=== PATIENT | female | born 1980 | race Caucasian/White ===

== ENCOUNTER 2017-11-11 20:51 | Emergency (ER) | payer BC ==
[~2017-11-11] VITALS: Ht 154.9 cm; Wt 76.1 kg
[~2017-11-11 20:51] MED LIST: ALPR0.5T PO; CEFU250T PO; CETI10TA22 PO; CYCL-331 PO; Ibuprofen PO; LEVO500T59 PO; NAPR500T4 PO; TRAM50TA PO
--- NOTE | 2017-11-11 21:52 | PHYS DOC ---
General Chief Complaint: ALLERGIC REACTION Stated Complaint: ALLERGIC REACTION,FACE Time Seen by MD: 21:49 Source: patient Exam Limitations: no limitations Problems: History of Present Illness Initial Comments Patient is a 37-year-old female who comes complaining of possible allergic reaction. Patient states that she was seen by her PCP Dr. Sanford's office earlier today and underwent influenza testing. She states that she does not know what the results were but she was discharged home with prescriptions for steroid taper, Z-Samir, and Tamiflu. Patient has taken steroids and Zithromax in the past without any issues, she states that after taking the second dose of Tamiflu today she developed an itchy rash over her face and chest. She denies any difficulty breathing and cough hoarseness or feeling of lump in throat. Timing/Duration: 1-3 hours Severity: moderate Modifying Factors: improves with cold therapy, worse with medication Associated Symptoms: rash Allergies: Coded Allergies: Sulfa (Sulfonamide Antibiotics) (Verified Allergy, Intermediate, 11/11/17) amoxicillin (Verified Allergy, Intermediate, Rash, 11/23/14) shellfish derived (Verified Allergy, Intermediate, 12/02/15) *tolerated contrast in the past* Past Medical History Medical History: no pertinent history, high cholesterol Surgical History: cholecystectomy, tonsillectomy, other Social History Smoker: non-smoker Alcohol: none Drugs: none Review of Systems Constitutional: see HPI EENTM: denies throat pain, denies throat swelling, denies mouth swelling Respiratory: denies cough, denies shortness of breath, denies wheezing Cardiovascular: denies chest pain, denies palpitations, denies syncope Gastrointestinal: denies abdominal pain, denies nausea, denies vomiting Skin: see HPI Immunological/Allergic: see HPI Physical Exam General Appearance: WD/WN, no apparent distress Ear, Nose, Throat: hearing grossly normal, normal ENT inspection, normal pharynx, other (no soft tissue swelling airway patent) Neck: non-tender, supple Respiratory: normal breath sounds, no respiratory distress Extremities: non-tender, normal inspection Neurologic/Psychiatric: alert, oriented x 3 Skin: warm/dry (urticarial rash of face consistent with allergy) Orders, Labs, Meds I discussed the departure instructions [id number] and provided them in written form below. Patient received prednisone Benadryl and Pepcid in the emergency department and was discharged before evaluating medication efficacy per her request. I discussed signs and symptoms to monitor as well as indications for urgent return to the department. Her questions were answered to her satisfaction and she expressed agreement and understanding with the treatment plan. Departure Time of Disposition: 21:50 Disposition: HOME, SELF-CARE Diagnosis: Tamiflu allergy, flulike symptoms Condition: STABLE Patient Instructions: Drug Allergy, [id number] Additional Instructions: Please review the patient education materials given by ED staff. Remain in a cool temperature environment and avoid strenuous activity for optimal symptom control. [id number] Pepcid and Benadryl while taking prednisone. Discontinue the steroid taper pack and Tamiflu. Prescription: Prednisone 20 mg twice daily for 5 days Contact her doctor's office tomorrow to check up on influenza test results as well as to advise of hipolito's emergency department visit. Return to ED with new or changing symptoms. JOJO BRAN DO Nov 11, 2017 21:52
[2017-11-11] MEDS ORDERED: PRED20TA PO (21:53)
[2017-11-11] MEDS ORDERED: diphenhydrAMINE HCL 25 MG CAPSULE PO ONE (22:15)
[2017-11-11] MEDS ORDERED: FAMOTIDINE 20 MG TABLET PO ONE (22:15)
[2017-11-11] MEDS ORDERED: predniSONE 20 MG TABLET PO ONE (22:15)
[2017-11-12 01:58] VITALS: BP 129/89
[2017-11-15] MEDS ORDERED: CEFU250S PO (14:42)
== END 2017-11-12 01:58 | disposition home or self-care (01) ==
LOC: ER 20:51
DX: T37.5X5A Adverse effect of antiviral drugs, initial encounter (principal); R05 Cough; J39.2 Other diseases of pharynx; E78.00 Pure hypercholesterolemia, unspecified; Z88.2 Allergy status to sulfonamides; Z91.013 Allergy to seafood; Y92.89 Other specified places as the place of occurrence of the external cause
CPT/HCPCS: 99284; J7512; Q0163

== ENCOUNTER 2017-11-14 11:39 | Observation (INO) | payer BC ==
[~2017-11-14] VITALS: Ht 154.9 cm; Wt 76.7 kg
[~2017-11-14 11:39] MED LIST changes: +NAPR-514 PO; -NAPR500T4 PO; +PRED20TA PO
[2017-11-14 12:14] VITALS: BP 130/92
[2017-11-14] MEDS ORDERED: ACETAMINOPHEN 500 MG TABLET PO PRN ×2 (12:45→13:00)
[2017-11-14] MEDS ORDERED: ONDANSETRON PF 4 MG/2 ML VIAL. IV PRN (12:45)
[2017-11-14 12:59] LABS: ALBUMIN 3.7 g/dL (3.4-5.0); ALBUMIN/GLOBULIN RATIO 0.8 (1.0-1.7); CREATININE 0.6 mg/dL (0.6-1.0); GFR 113.8; POTASSIUM 3.2 mmol/L (3.5-5.1); TOTAL BILIRUBIN 0.3 mg/dL (0.2-1.0); TOTAL PROTEIN 8.1 g/dL (6.4-8.2)
[2017-11-14] MEDS ORDERED: IV NORMAL SALINE 1,000ML 1,000 ML IV SCH (13:00)
[2017-11-14] MEDS ORDERED: ONDANSETRON 4MG ODT 4TABLET STARTPACK. PO ONE (13:00)
[2017-11-14 13:05] LABS: BASO % 0 % (0-3); EOS % 0 % (0-3); HEMATOCRIT 39.4 % (36.0-47.0); HEMOGLOBIN 13.4 g/dL (12.0-15.5); LYMPH # 2.9 x10^3/uL (1.0-4.8); LYMPH % 37 % (24-48); MEAN CORPUSCULAR HEMOGLOBIN 28 pg (25-35); MEAN CORPUSCULAR HGB CONC 34 g/dL (31-37); MEAN CORPUSCULAR VOLUME 82 fL (79-100); MONO # 0.7 x10^3/uL (0.0-1.1); MONO % 8 % (0-9); NEUT # 4.3 x10^3uL (1.8-7.7); NEUT % 54 % (31-73); PLATELET COUNT 252 x10^3/uL (140-400); RED BLOOD COUNT 4.83 x10^6/uL (3.50-5.40); RED CELL DISTRIBUTION WIDTH 13.8 % (11.5-14.5); WHITE BLOOD COUNT 7.9 x10^3/uL (4.0-11.0)
[2017-11-14 13:48] LABS: INFLUENZA A PATIENT NEGATIVE (NEGATIVE); INFLUENZA B PATIENT NEGATIVE (NEGATIVE)
[2017-11-14] MEDS: cefTRIAXone IV Push 1 GM VIAL. IVP SCH (14:41)
[2017-11-14] MEDS: POTASSIUM CL 20MEQ IN 0.9%NACL 1,000 ML IV SCH ×2 (14:42→23:33)
[2017-11-14 15:06] LABS: BACTERIA,URINE MOD /HPF (0-FEW); BILIRUBIN,URINE NEG (NEG); CLARITY,URINE HAZY; COLOR,URINE AMBER; GLUCOSE,URINE NEG (NEG); NITRITE,URINE NEG (NEG); SQUAMOUS EPITHELIAL CELL,UR MANY /LPF; UROBILINOGEN,URINE 1 mg/dL (0.2 mg/dL)
[2017-11-14 15:44] VITALS: BP 125/86
--- NOTE | 2017-11-14 16:19 | RAD ---
2 views of the Chest 11/14/2017 2:14 PM Indication: cough/congestion Comparison: Chest radiograph May 16, 2015 Findings: There is no focal consolidation or infiltrate identified. There is no effusion or pneumothorax. The cardiomediastinal silhouette and pulmonary vasculature are within normal limits. No osseous abnormality is identified. Impression: No evidence of acute cardiopulmonary process.
--- NOTE | 2017-11-14 17:04 | RAD ---
Abdominal ultrasound, 11/14/2017: History: Elevated liver enzymes The gallbladder is surgically absent. The hepatic echogenicity appears to be diffusely increased. This is most commonly due to fatty change. There is no evidence of a hepatic mass or bile duct dilatation. The visualized portions of the pancreas and both kidneys are unremarkable. The spleen measures 13.2 cm in length which is at the upper limits of normal. The abdominal aorta and inferior vena cava are unremarkable. No free fluid is evident in the abdomen. IMPRESSION: 1. Status post cholecystectomy. 2. Increased hepatic echogenicity suggesting hepatic steatosis. 3. No acute abdominal abnormality is detected.
[2017-11-14] MEDS: IPRATRPIUM/ALBUTEROL 0.5/2.5MG 3 ML NEBU. NEB SCH ×2 (17:57→21:39)
[2017-11-14 19:36] VITALS: BP 115/79
[2017-11-14 23:08] VITALS: BP 115/73
[2017-11-15] MEDS: POTASSIUM CL 20MEQ IN 0.9%NACL 1,000 ML IV SCH ×2 (05:13→13:24)
[2017-11-15 05:34] VITALS: BP 120/81
[2017-11-15] MEDS: IPRATRPIUM/ALBUTEROL 0.5/2.5MG 3 ML NEBU. NEB SCH ×2 (05:40→09:59)
[2017-11-15 06:48] LABS: BASO % 1 % (0-3); EOS # 0.1 x10^3/uL (0.0-0.7); EOS % 1 % (0-3); HEMATOCRIT 32.7 % (36.0-47.0); HEMOGLOBIN 11.1 g/dL (12.0-15.5); LYMPH # 2.4 x10^3/uL (1.0-4.8); LYMPH % 49 % (24-48); MEAN CORPUSCULAR HEMOGLOBIN 28 pg (25-35); MEAN CORPUSCULAR HGB CONC 34 g/dL (31-37); MEAN CORPUSCULAR VOLUME 83 fL (79-100); MONO # 0.4 x10^3/uL (0.0-1.1); MONO % 9 % (0-9); NEUT % 41 % (31-73); PLATELET COUNT 168 x10^3/uL (140-400); RED BLOOD COUNT 3.95 x10^6/uL (3.50-5.40); RED CELL DISTRIBUTION WIDTH 13.9 % (11.5-14.5); WHITE BLOOD COUNT 4.9 x10^3/uL (4.0-11.0)
[2017-11-15 06:52] LABS: CALCIUM 8.3 mg/dL (8.5-10.1); CREATININE 0.7 mg/dL (0.6-1.0); GFR 95.2; POTASSIUM 3.9 mmol/L (3.5-5.1)
[2017-11-15 08:08] LABS: HCV ANTIBODY <0.1 s/co ratio (0.0-0.9); HEP A IGM ABDY Negative (Negative)
[2017-11-15] MEDS ORDERED: LACTOBACILLUS RHAMNOSUS GG 1 CAPSULE. PO SCH (09:00)
[2017-11-15 10:34] VITALS: BP 124/85
[2017-11-15 11:09] LABS: ALBUMIN 3.1 g/dL (3.4-5.0); DIRECT BILIRUBIN 0.1 mg/dL (0.0-0.2); TOTAL BILIRUBIN 0.3 mg/dL (0.2-1.0); TOTAL PROTEIN 6.6 g/dL (6.4-8.2)
[2017-11-15] MEDS: cefTRIAXone IV Push 1 GM VIAL. IVP SCH (13:36)
[2017-11-15] MEDS ORDERED: CEFU250S PO (14:42)
[2017-11-18 18:08] LABS: ANA INTERP Negative (.)
== END 2017-11-15 15:20 | disposition home or self-care (01) ==
LOC: INTOOBSV 11:58 → 1 SOUTH 11:58
PROVIDERS: ADMIT Family Medicine; ATTEND Family Medicine
DX: J20.8 Acute bronchitis due to other specified organisms (principal); E86.0 Dehydration; B27.89 Other infectious mononucleosis with other complication; R94.5 Abnormal results of liver function studies; R11.0 Nausea; Z82.49 Family history of ischemic heart disease and other diseases of the circulatory system
CPT/HCPCS: 36415; 71046; 76700; 80048; 80053; 80074; 80076; 81001; 83605; 85025; 85379; 85651; 86038; 86060; 86140; 86644; 86645; 86663; 86664; 86738; 87040; 87086; 87804; 94640; 96361; 96374; 96376; G0378; G0379; J0696; J7620

== ENCOUNTER → 2018-08-14 | Outpatient (CLI) | payer BC ==
[~2018-08-14] MED LIST changes: +CEFU250S PO; +IOHEXOL 300 MG/ML 75 ML VIAL. IV ONE
--- NOTE | 2018-08-14 18:18 | RAD ---
CT SOFT TISSUE NECK W/CONTRAST Indication: Left-sided lump off-and-on for a couple of weeks Technique: Postcontrast CT imaging was performed of the neck, multiplanar reconstruction images submitted. One or more of the following individualized dose reduction techniques were utilized for this examination: 1. Automated exposure control 2. Adjustment of the mA and/or kV according to patient size 3. Use of iterative reconstruction technique. Comparison: None Findings: Marked was placed at site of concern which is located at the left posterior neck at the C4 level. Deep to the marker, there is a likely node about 0.6 cm short axis dimension by 0.9 cm AP by 0.6 cm CC. There are some other scattered nodes bilaterally not considered significantly enlarged based on short axis dimension. Largest right level 2 node measures about 0.9 cm short axis dimension. There is no abnormality of the visualized thyroid gland. There is no abnormality of the limited visualized lung apices. There is preservation of the parapharyngeal fat planes. Right submandibular gland is somewhat enlarged compared with the left without discrete nodularity. Parotid glands are symmetric in appearance other than probable small superficial node on the right about 0.3 cm short axis dimension. The mastoid air cells and visualized paranasal sinuses are overall aerated. No abnormal fluid collection is identified of the neck. IMPRESSION: 1. There is a probable node deep to the left posterior marker at site of palpable concern, not considered significantly enlarged. There are some other scattered nonspecific nodes of the bilateral neck although also not considered significantly enlarged based on short axis dimensions. Clinical follow-up is advised. Electronically signed by: Junior Zhu MD (08/14/2018 6:15 PM) [id number]
== END | disposition home or self-care (01) ==
LOC: CT 12:24
PROVIDERS: ATTEND Nurse Practitioner Family
DX: R13.12 Dysphagia, oropharyngeal phase (principal); R59.0 Localized enlarged lymph nodes
CPT/HCPCS: 70491; Q9967

== ENCOUNTER → 2019-11-30 | Outpatient (CLI) | payer BC ==
[~2019-11-30] MED LIST changes: -CETI10TA22 PO; +CETI10TA24 PO; +CONTRAST GIVEN MC PRN
--- NOTE | 2019-11-30 10:01 | RAD ---
Examination: CT SOFT TISSUE NECK W/CONTRAST History: Nodules of the neck bilaterally and posteriorly Comparison/Correlation: 08/14/2018 CT Neck with contrast Findings: Axial images of the neck were obtained following IV contrast. Sagittal and coronal reformatted images were provided. Posterior fossa is unremarkable. Visualized paranasal sinuses are unremarkable. Parotid and submandibular glands are unremarkable. Pharynx is symmetric. True and false cords are symmetric. Thyroid gland is normal. Bony structures are unremarkable. Visualized vasculature structures are unremarkable on this nonarteriographic exam. Markers were placed at the right posterior neck region where palpable abnormalities reported. On axial image 39 at the false cord level within the posterior lateral neck, there is a 0.6 cm x 0.6 cm well-circumscribed nodule superficial to musculature. This may represent a lymph node. More superiorly on axial image 29 which is at the C2 vertebral body level inferiorly, there is a spiculated process within the subcutaneous fat measuring 0.9 cm x 1.2 cm. Superior to this level is a 0.4 cm diameter nodule on axial image 24. Central hypodensity which may represent calcifications present. At the left lower neck, marker was placed at the posterior lateral aspect which measures 1 cm x 0.9 cm on axial image 41. This is just deep to the fascia. There are additional nonenlarged lymph nodes and nodular structures which probably represent lymph nodes present bilaterally. Visualized lung apices are unremarkable. Impression: Multiple nonenlarged, benign-appearing lymph nodes are present involving the neck are mostly stable in size compared to the previous exam. At the left basilar aspect, there is a borderline size lymph node node or other nodule present. No aggressive features. It has mildly increased in size as compared to 08/14/2018. One of the palpable abnormalities correspond to the level of the nodule which probably represents a lymph node. Additional marker placed more superiorly at the right posterolateral neck corresponds to a spiculated soft tissue density within the subcutaneous fat. Correlate with trauma, intervention, inflammatory process, scarring, or other etiology for this finding which has remained stable since the previous CT exam. PQRS Compliance Statement: One or more of the following individualized dose reduction techniques were utilized for this examination: 1. Automated exposure control 2. Adjustment of the mA and/or kV according to patient size 3. Use of iterative reconstruction technique Electronically signed by: Robert Durbin MD (11/30/2019 9:59 AM) [place] [id number]
== END | disposition home or self-care (01) ==
LOC: CT 08:24
PROVIDERS: ATTEND Family Medicine
DX: M54.2 Cervicalgia (principal); R22.1 Localized swelling, mass and lump, neck
CPT/HCPCS: 70491; Q9967

== ENCOUNTER → 2020-05-10 | Outpatient (CLI) | payer BC ==
[~2020-05-10] MED LIST changes: -CONTRAST GIVEN MC PRN; -IOHEXOL 300 MG/ML 75 ML VIAL. IV ONE
[2020-05-10 13:47] LABS: FREE T4 0.97 ng/dL (0.76-1.46)
[2020-05-10 13:48] LABS: THYROID STIM HORMONE (TSH) 2.572 uIU/mL (0.358-3.740)
[2020-05-10 20:06] LABS: FSH 54.6 mIU/mL (.); LUTEINIZING HORMONE 24.9 mIU/mL (.); THYROXINE 7.9 ug/dL (4.5-12.0)
[2020-05-11 00:07] LABS: HEMOGLOBIN A1C 5.4 % (4.8-5.6)
== END ==
LOC: LAB 07:32
DX: E11.65 Type 2 diabetes mellitus with hyperglycemia (principal); E34.9 Endocrine disorder, unspecified; E23.0 Hypopituitarism; E55.9 Vitamin D deficiency, unspecified; E03.9 Hypothyroidism, unspecified; E61.1 Iron deficiency
CPT/HCPCS: 36415; 82306; 82607; 83001; 83002; 83036; 83540; 84270; 84305; 84436; 84439; 84443; 84479; 84480; 84481; 84482

== ENCOUNTER → 2020-07-01 | Outpatient (CLI) | payer BC ==
[~2020-07-01] MED LIST changes: -CETI10TA24 PO; +CETI10TA74 PO
[2020-07-02 00:07] LABS: THYROPEROXIDASE ANTIBODY 9 IU/mL (0-34)
== END | disposition home or self-care (01) ==
LOC: LAB 12:44
DX: E03.9 Hypothyroidism, unspecified (principal)
CPT/HCPCS: 36415; 84442; 86376

== ENCOUNTER → 2020-07-18 | Outpatient (CLI) | payer BC ==
--- NOTE | 2020-07-18 10:30 | RAD ---
EXAMINATION: THYROID ULTRASOUND, 07/18/2020 9:00 AM CLINICAL INDICATION: Goiter TECHNIQUE: Grayscale and color Doppler sonographic images of the thyroid are submitted for interpretation. COMPARISON: CT soft tissue neck 11/30/2019 FINDINGS: The right thyroid lobe measures 5.3 x 1.3 x 1.1 cm. The left thyroid lobe measures 3.8 x 1.2 x 1.1 cm. The isthmus is not visualized. Thyroid parenchyma is homogeneous and normal in echogenicity and echotexture. There is a tiny 3 mm anechoic cyst in the left thyroid lobe. No suspicious nodules. IMPRESSION: Normal appearance of thyroid gland. No goiter or suspicious nodules. Electronically signed by: Negin Fong MD (07/18/2020 10:26 AM) [id number]
== END | disposition home or self-care (01) ==
LOC: US 08:27
DX: E04.1 Nontoxic single thyroid nodule (principal)
CPT/HCPCS: 76536

== ENCOUNTER → 2020-08-19 | Outpatient (CLI) | payer BC ==
--- NOTE | 2020-08-19 10:12 | RAD ---
EXAM: Bilateral digital screening mammogram with tomosynthesis. HISTORY 40-year-old female presents for screening mammography. TECHNIQUE: Full-field digital craniocaudal and mediolateral oblique 2D and 3D tomosynthesis images of both breasts are obtained for evaluation. Computer aided detection was applied. COMPARISON: None. This is baseline mammogram. BREAST PARENCHYMAL DENSITY: Level A - Mostly fat. FINDINGS: There is no suspicious mass, microcalcification or region of architectural distortion. IMPRESSION: BI-RADS Category 2: Benign finding(s). RECOMMENDATION: Annual mammography resuming age 40, or earlier if deemed indicated based on clinical history, is recommended according to ACR guidelines. If your mammogram demonstrates that you have dense breast tissue, which could hide abnormalities, and if you have other risk factors for breast cancer that have been identified, you might benefit from supplemental screening tests that may be suggested by your ordering physician. Dense breast tissue, in and of itself, is a relatively common condition. This information is not provided to cause undue concern, but rather to raise your awareness and to promote discussion with your physician regarding the presence of other risk factors, in addition to dense breast tissue. A report of your mammography results will be sent to you and your physician. You should contact your physician if you have any questions or concerns regarding this report. Mammography is a sensitive method for finding small breast cancers, but it does not detect them all and is not a substitute for careful clinical examination. A negative mammogram does not negate a clinically suspicious finding and should not result in delay in biopsying a clinically suspicious abnormality. PQRS compliance statement - Patient information was entered into a reminder system with a target due date for the next mammogram. "Our facility is accredited by the [employer] Mammography Program." Electronically signed by: Savannah Castaneda MD (08/19/2020 10:09 AM) [id number]
== END ==
LOC: MAMMO 08:17
DX: Z12.31 Encounter for screening mammogram for malignant neoplasm of breast (principal)
CPT/HCPCS: 77063; 77067

== ENCOUNTER → 2020-10-18 | Outpatient (CLI) | payer BC ==
[2020-10-18 18:58] LABS: FREE T4 0.97 ng/dL (0.76-1.46); THYROID STIM HORMONE (TSH) 3.17 uIU/mL (0.358-3.740)
[2020-10-18 20:09] LABS: THYROXINE 6.9 ug/dL (4.5-12.0)
== END ==
LOC: LAB 08:08
PROVIDERS: ATTEND Registered Nurse
DX: E61.1 Iron deficiency (principal); E55.9 Vitamin D deficiency, unspecified; E03.9 Hypothyroidism, unspecified
CPT/HCPCS: 36415; 83540; 84436; 84439; 84443; 84479; 84480; 84481; 84482

== ENCOUNTER 2020-11-07 13:51 | Emergency (ER) | payer BC ==
[~2020-11-07] VITALS: Ht 152.4 cm; Wt 77.8 kg
[2020-11-07] MEDS ORDERED: diphenhydrAMINE 50 MG/ML VIAL IVP ONE (14:30)
[2020-11-07] MEDS ORDERED: IV NORMAL SALINE 1,000ML 1,000 ML IV ONE (14:30)
[2020-11-07] MEDS ORDERED: ONDANSETRON PF 4 MG/2 ML VIAL. IVP ONE (14:30)
[2020-11-07 14:47] LABS: BASO # 0.1 x10^3/uL (0.0-0.2); BASO % 1 % (0-3); EOS # 0.1 x10^3/uL (0.0-0.7); EOS % 1 % (0-3); HEMATOCRIT 38.9 % (36.0-47.0); HEMOGLOBIN 12.7 g/dL (12.0-15.5); LYMPH # 2.8 x10^3/uL (1.0-4.8); LYMPH % 31 % (24-48); MEAN CORPUSCULAR HEMOGLOBIN 27 pg (25-35); MEAN CORPUSCULAR HGB CONC 33 g/dL (31-37); MEAN CORPUSCULAR VOLUME 83 fL (79-100); MONO # 0.4 x10^3/uL (0.0-1.1); MONO % 5 % (0-9); NEUT # 5.5 x10^3uL (1.8-7.7); NEUT % 62 % (31-73); PLATELET COUNT 215 x10^3/uL (140-400); RED BLOOD COUNT 4.69 x10^6/uL (3.50-5.40); RED CELL DISTRIBUTION WIDTH 14.3 % (11.5-14.5); WHITE BLOOD COUNT 8.9 x10^3/uL (4.0-11.0)
--- NOTE | 2020-11-07 14:52 | EKG ---
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
--- NOTE | 2020-11-07 14:55 | PHYS DOC ---
Past History Past Medical History: Anxiety, Endometriosis, Migraines, Ovarian Cyst, Other Additional Past Medical Histor: FE DEFICIENCY, ADRENAL GLAND "ISSUES" Past Surgical History: Cholecystectomy, , Hysterectomy, Other Additional Past Surgical Histo: LEFT BICEP, LYMPH NODE REMOVAL ON NECK Alcohol Use: None Drug Use: None General Adult EDM: Chief Complaint: NOSEBLEED HPI: HPI: Patient is a 40-year-old female who presents with a nosebleed. Patient states that the nosebleed started at 8:00 this morning. She reports that the nosebleed has been intermittent all day. Patient is reporting nausea headache, and some lightheadedness. Patient states she has never had a nosebleed before. Patient states she was seen at Dr. Duke's office prior to coming to the emergency room. Dr. Duke wanted her to have labs drawn. Patient denies being on blood thinners. Patient has history of iron deficiency anemia. Review of Systems: Review of Systems: Constitutional: Denies fever or chills Eyes: Denies change in visual acuity HENT: Denies nasal congestion or sore throat Respiratory: Denies cough or shortness of breath Cardiovascular: Denies chest pain or edema GI: Denies abdominal pain, reports nausea : Denies dysuria Musculoskeletal: Denies back pain or joint pain Integument: Denies rash Neurologic: Reports headache, denies focal weakness or sensory changes Endocrine: Denies polyuria or polydipsia Lymphatic: Denies swollen glands Psychiatric: Denies depression or anxiety Current Medications: Current Meds: Current Medications Medications (Trade) Dose Ordered Sig/Alberto Start Time Stop Time Status Last Admin Dose Admin Diphenhydramine HCl (Benadryl) 25 mg 1X ONCE 11/07/20 14:30 11/07/20 14:39 DC 11/07/20 14:47 25 MG Ondansetron HCl (Zofran) 4 mg 1X ONCE 11/07/20 14:30 11/07/20 14:39 DC 11/07/20 14:44 4 MG Sodium Chloride 1,000 ml @ 1,000 mls/hr 1X ONCE 11/07/20 14:30 11/07/20 15:29 11/07/20 14:45 1,000 MLS/HR Allergies: Allergies: Allergies Coded Allergies Type Severity Reaction Last Updated Verified Sulfa (Sulfonamide Antibiotics) Allergy Intermediate 11/11/17 Yes amoxicillin Allergy Intermediate Rash 11/23/14 Yes oseltamivir Allergy Intermediate itchy rash 01/05/19 Yes shellfish derived Allergy Intermediate 12/02/15 Yes Physical Exam: PE: Constitutional: Well developed, well nourished, no acute distress, non-toxic appearance. [] HENT: Normocephalic, atraumatic, bilateral external ears normal, oropharynx moist, anterior bleeding from left nare Eyes: PERRLA, EOMI, conjunctiva normal, no discharge. [] Neck: Normal range of motion, no tenderness, supple, no stridor. [] Cardiovascular:Heart rate regular rhythm, no murmur [] Lungs & Thorax: Bilateral breath sounds clear to auscultation [] Abdomen: Bowel sounds normal, soft, no tenderness, no masses, no pulsatile masses. [] Skin: Warm, dry, no erythema, no rash. [] Back: No tenderness, no CVA tenderness. [] Extremities: No tenderness, no cyanosis, no clubbing, ROM intact, no edema. [] Neurologic: Alert and oriented X 3, normal motor function, normal sensory function, no focal deficits noted. [] Psychologic: Affect normal, judgement normal, mood normal. [] Current Patient Data: Labs: Laboratory Tests Test 11/07/20 14:30 White Blood Count 8.9 x10^3/uL (4.0-11.0) Red Blood Count 4.69 x10^6/uL (3.50-5.40) Hemoglobin 12.7 g/dL (12.0-15.5) Hematocrit 38.9 % (36.0-47.0) Mean Corpuscular Volume 83 fL (79-100) Mean Corpuscular Hemoglobin 27 pg (25-35) Mean Corpuscular Hemoglobin Concent 33 g/dL (31-37) Red Cell Distribution Width 14.3 % (11.5-14.5) Platelet Count 215 x10^3/uL (140-400) Neutrophils (%) (Auto) 62 % (31-73) Lymphocytes (%) (Auto) 31 % (24-48) Monocytes (%) (Auto) 5 % (0-9) Eosinophils (%) (Auto) 1 % (0-3) Basophils (%) (Auto) 1 % (0-3) Neutrophils # (Auto) 5.5 x10^3uL (1.8-7.7) Lymphocytes # (Auto) 2.8 x10^3/uL (1.0-4.8) Monocytes # (Auto) 0.4 x10^3/uL (0.0-1.1) Eosinophils # (Auto) 0.1 x10^3/uL (0.0-0.7) Basophils # (Auto) 0.1 x10^3/uL (0.0-0.2) Vital Signs: Vital Signs Date Time Temp Pulse Resp B/P (MAP) Pulse Ox O2 Delivery O2 Flow Rate FiO2 11/07/20 14:00 98.6 97 20 115/79 (91) 98 Room Air EKG: EKG: Sinus rhythm. Heart rate 94 bpm. Intervals normal. [place] normal. Otherwise normal EKG [] Radiology/Procedures: Radiology/Procedures: [] Heart Score: Risk Factors: Risk Factors: DM, Current or recent (<one month) smoker, HTN, HLP, family history of CAD, obesity. Risk Scores: Score 0 - 3: 2.5% MACE over next 6 weeks - Discharge Home Score 4 - 6: 20.3% MACE over next 6 weeks - Admit for Clinical Observation Score 7 - 10: 72.7% MACE over next 6 weeks - Early Invasive Strategies Course & Med Decision Making: Course & Med Decision Making Pertinent Labs and Imaging studies reviewed. (See chart for details) []Patient is a 40-year-old female who presents with a nosebleed. Patient states that the nosebleed started at 8:00 this morning. She reports that the nosebleed has been intermittent all day. Patient is reporting nausea headache, and some lightheadedness. Patient states she has never had a nosebleed before. Patient denies being on blood thinners. Patient has history of iron deficiency anemia. EKG ordered due to dizziness. EKG shows normal sinus rhythm. Labs all within normal range. Clamp removed from patient's nose, bleeding is controlled. Patient given Afrin and triple antibiotic ointment. Dragon Disclaimer: Dragon Disclaimer: This electronic medical record was generated, in whole or in part, using a voice recognition dictation system. Departure Departure: Impression: Primary Impression: Epistaxis Disposition: 01 DC HOME SELF CARE/HOMELESS Condition: IMPROVED Referrals: BLANCA KENYON (PCP) Patient Instructions: Nosebleed, [id number] Additional Instructions: You were seen today in emergency room for nosebleed. You were given Afrin in the emergency room and also triple antibiotic ointment to keep the area moist. Please return to the emergency room with worsening symptoms or concerns. EMERGENCY DEPARTMENT GENERAL DISCHARGE INSTRUCTIONS Thank you for coming to [facility] (ED) today and trusting us with you care. We trust that you had a positivie experience in our Emergency Department. If you wish to speak to the department management, you may call the director at [phone]. YOUR FOLLOW UP INSTRUCTIONS ARE FOLLOWS: 1. Do you have a private Doctor? If you do not have a private doctor, please ask for a resource list of physicians or clinics that may be able to assist you with follow up care. 2. The Emergency Physician has interpreted your x-rays. The X-Ray specialist will also review them. If there is a change in the findings, you will be notified in 48 hours when at all possible. 3. A lab test or culture has been done, your results will be reviewed and you will be notified if you need a change in treatment. ADDITIONAL INSTRUCTIONS AND INFORMATION: 1. Your care today has been supervised by a physician who is specially trained in emergency care. Many problems require more than one evaluation for a complete diagnosis and treatment. We recommend that you schedule your follow up appointment as recommended to ensure complete treatment of you illness or injury. If you are unable to obtain follow up care and continue to have a problem, or if your condition worsens, we recommend that you return to the ED. 2. We are not able to safely determine your condition over the phone nor are we able to give sound medical advice over the phone. For these safety reasons, if you call for medical advice we will ask you to come to the ED for further evaluation. 3. If you have any questions regarding these discharge instructions please call the ED at [phone]. SAFETY INFORMATION: In the interest of safety, wellness, and injury prevention; we encourage you to wear your sealbelt, if you smoke; quite smoking, and we encourage family to use a protective helmet for bicycling and other sporting events that present an increased risk for head injury. IF YOUR SYMPTOMS WORSEN OR NEW SYMPTOMS DEVELOP, OR YOU HAVE CONCERNS ABOUT YOUR CONDITION; OR IF YOUR CONDITION WORSENS WHILE YOU ARE WAITING FOR YOUR FOLLOW UP APPOINTMENT; EITHER CONTACT YOUR PRIMARY CARE DOCTOR, THE PHYSICIAN WHOSE NAME AND NUMBER YOU WERE GIVEN, OR RETURN TO THE ED IMMEDIATELY. TAVON CAREY APRN Nov 07, 2020 14:55
[2020-11-07 14:56] LABS: CALCIUM 9.4 mg/dL (8.5-10.1); CREATININE 0.8 mg/dL (0.6-1.0); GFR 80.3; POTASSIUM 3.6 mmol/L (3.5-5.1)
[2020-11-07] MEDS ORDERED: OXYMETAZOLINE 0.05% NASAL SPRAY 30ML BOTTLE. NS ONE (15:30)
[2020-11-07 15:33] VITALS: BP 115/82
== END 2020-11-07 15:49 | disposition home or self-care (01) ==
LOC: ER 13:51
DX: R04.0 Epistaxis (principal); G43.909 Migraine, unspecified, not intractable, without status migrainosus; R11.0 Nausea; F41.9 Anxiety disorder, unspecified; Z86.2 Personal history of diseases of the blood and blood-forming organs and certain disorders involving the immune mechanism; Z88.2 Allergy status to sulfonamides; Z88.1 Allergy status to other antibiotic agents; Z91.013 Allergy to seafood
CPT/HCPCS: 36415; 80048; 85025; 85610; 85730; 93005; 96361; 96374; 96375; 99284; J1200; J2405; J7030

== ENCOUNTER → 2021-01-18 | Outpatient (CLI) | payer BC | LOC: LAB 07:55 | DX: E61.1 Iron deficiency (principal); E55.9 Vitamin D deficiency, unspecified | CPT/HCPCS: 36415; 82728; 83540 ==

== ENCOUNTER 2021-03-23 11:52 | Emergency (ER) | payer BC ==
[~2021-03-23] VITALS: Ht 152.4 cm; Wt 75.5 kg
[2021-03-23 12:48] LABS: U PREG PATIENT NEGATIVE (NEG)
[2021-03-23 13:09] LABS: BACTERIA,URINE MOD /HPF (0-FEW); BILIRUBIN,URINE NEG (NEG); CLARITY,URINE HAZY; COLOR,URINE YELLOW; GLUCOSE,URINE NEG (NEG); NITRITE,URINE NEG (NEG); RBC,URINE OCC /HPF (0-2); SQUAMOUS EPITHELIAL CELL,UR MANY /LPF; UROBILINOGEN,URINE 0.2 mg/dL (0.2 mg/dL)
[2021-03-23] MEDS ORDERED: IOHEXOL 300 MG/ML 75 ML VIAL. IV ONE ×2 (13:45→14:00)
[2021-03-23 13:55] LABS: BASO # 0.1 x10^3/uL (0.0-0.2); BASO % 1 % (0-3); EOS # 0.1 x10^3/uL (0.0-0.7); EOS % 1 % (0-3); HEMATOCRIT 40.1 % (36.0-47.0); HEMOGLOBIN 13.4 g/dL (12.0-15.5); LYMPH # 3.1 x10^3/uL (1.0-4.8); LYMPH % 30 % (24-48); MEAN CORPUSCULAR HEMOGLOBIN 28 pg (25-35); MEAN CORPUSCULAR HGB CONC 33 g/dL (31-37); MEAN CORPUSCULAR VOLUME 82 fL (79-100); MONO # 0.5 x10^3/uL (0.0-1.1); MONO % 5 % (0-9); NEUT # 6.4 x10^3uL (1.8-7.7); NEUT % 62 % (31-73); PLATELET COUNT 231 x10^3/uL (140-400); RED BLOOD COUNT 4.87 x10^6/uL (3.50-5.40); RED CELL DISTRIBUTION WIDTH 14.6 % (11.5-14.5); WHITE BLOOD COUNT 10.3 x10^3/uL (4.0-11.0)
[2021-03-23 13:58] LABS: CALCIUM 9.6 mg/dL (8.5-10.1); CREATININE 0.7 mg/dL (0.6-1.0); GFR 93.6
[2021-03-23 14:06] LABS: ALBUMIN 4.1 g/dL (3.4-5.0); ALBUMIN/GLOBULIN RATIO 1.1 (1.0-1.7); TOTAL BILIRUBIN 0.4 mg/dL (0.2-1.0)
--- NOTE | 2021-03-23 14:37 | RAD ---
INDICATION: Reason: RT FLANK TO SUPRAPUBIC PAIN COMPARISON: August 2016 TECHNIQUE: Axial CT images obtained through the abdomen and pelvis with contrast. One or more of the following individualized dose reduction techniques were utilized for this examinat ion: 1. Automated exposure control; 2. Adjustment of the mA and/or kV according to patient size; 3 . Use of iterative reconstruction technique. FINDINGS: Trace pleural effusions. Mild calcific atherosclerosis without abdominal aortic aneurysm. Metallic clips seen in the pelvis. Liver is mildly low density. Nonspecific but can be seen with fatty infiltration. Postcholecystectomy changes. No peripancreatic fluid collection. Spleen is enlarged. No hydronephrosis. Uterus is visualized. The appendix does not appear inflamed. No dilated loops of bowel to suggest obstruction. There is some degenerative changes the spine with osteophyte formation. Bilateral pars defects L5. Multilevel central canal and neural foraminal stenosis within the spine including at L4-5 where there is a disc osteophyte complex. IMPRESSION: * No evidence of appendicitis or bowel obstruction. * No hydronephrosis. Electronically signed by: Herman Palacio MD (03/23/2021 2:34 PM) [id number]
--- NOTE | 2021-03-23 14:42 | PHYS DOC ---
Past History Past Medical History: Anxiety, Endometriosis, Migraines, Ovarian Cyst, Other Additional Past Medical Histor: FE DEFICIENCY, ADRENAL GLAND "ISSUES" Past Surgical History: Cholecystectomy, , Hysterectomy, Other Additional Past Surgical Histo: LEFT BICEP, LYMPH NODE REMOVAL ON NECK Alcohol Use: None Drug Use: None Adult General Chief Complaint Chief Complaint: ABDOMINAL PAIN HPI HPI Patient is a 40-year-old female presenting via POV with significant other for super pubic pain. Has history of bilateral ovary and fallopian tube removal, states one side was due to cysts in the other was due to cysts that were concerning for cancer but ended up being benign. This was performed by [facility] at [facility] approximately 6 years ago. Nonetheless, patient reports having extensive past medical history and issues. Recently had MRI of thyroid performed 2 days prior to arrival and ever since has been having generalized suprapubic/lower abdominal cramping and pain that does not radiate. Nothing known makes better or worse. Patient is concerned that she recently found out that "I got a CT scan of my stomach and they left clips in me from the surgery... I am worried the MRI messed it up, I am not sure why I have clips in me". No fever, blurred vision, chest pain, shortness of breath, ripping or tearing abdominal sensation, dysuria, hematuria, constipation or other concerning findings Review of Systems Review of Systems Fourteen body systems of review of systems have been reviewed. See HPI for pertinent positives and negative responses, other cesar all other systems are negative, non-pertinent or non-contributory Current Medications Current Medications Current Medications Medications (Trade) Dose Ordered Sig/Alberto Start Time Stop Time Status Last Admin Dose Admin Fentanyl Citrate (Fentanyl 2ml Vial) 50 mcg 1X ONCE 03/23/21 13:45 03/23/21 13:46 DC 03/23/21 13:53 50 MCG Iohexol (Omnipaque 300 Mg/ml) 75 ml 1X ONCE 03/23/21 14:00 03/23/21 14:01 DC Allergies Allergies Allergies Coded Allergies Type Severity Reaction Last Updated Verified Sulfa (Sulfonamide Antibiotics) Allergy Intermediate 11/11/17 Yes amoxicillin Allergy Intermediate Rash 11/23/14 Yes oseltamivir Allergy Intermediate itchy rash 01/05/19 Yes shellfish derived Allergy Intermediate 12/02/15 Yes Physical Exam Physical Exam Constitutional: Well developed, well nourished, no acute distress, non-toxic appearance. HENT: Normocephalic, atraumatic, bilateral external ears normal, oropharynx moist, no oral exudates, nose normal. Eyes: PERRLA, EOMI, conjunctiva normal, no discharge. Neck: Normal range of motion, no tenderness, supple, no stridor. Cardiovascular: Heart rate regular, sinus rhythm, no murmurs rubs or gallops Lungs & Thorax: Bilateral breath sounds clear to auscultation Abdomen: Bowel sounds normal, soft, suprapubic discomfort with palpation, no masses, no pulsatile masses. Nonsurgical abdomen, no peritoneal signs : Deferred by patient Skin: Warm, dry, no erythema, no rash. Back: No tenderness, no CVA tenderness. Extremities: No tenderness, no cyanosis, no clubbing, ROM intact, no edema. Neurologic: Alert and oriented X 3, grossly normal motor & sensory function, no focal deficits noted. Psychologic: Anxious affect and mood Current Patient Data Vital Signs Vital Signs Date Time Temp Pulse Resp B/P (MAP) Pulse Ox O2 Delivery O2 Flow Rate FiO2 03/23/21 13:53 97 Room Air 03/23/21 12:09 98.2 105 19 131/82 (98) Lab Results Laboratory Tests Test 03/23/21 12:20 03/23/21 12:45 Urine Collection Type Unknown Urine Color Yellow Urine Clarity Hazy Urine pH 5.5 Urine Specific Orient 1.020 Urine Protein Neg (NEG-TRACE) Urine Glucose (UA) Neg mg/dL (NEG) Urine Ketones (Stick) Neg mg/dL (NEG) Urine Blood Trace (NEG) Urine Nitrite Neg (NEG) Urine Bilirubin Neg (NEG) Urine Urobilinogen Dipstick 0.2 mg/dL (0.2 mg/dL) Urine Leukocyte Esterase Neg (NEG) Urine RBC Occ /HPF (0-2) Urine WBC 1-4 /HPF (0-4) Urine Squamous Epithelial Cells Many /LPF Urine Bacteria Mod /HPF (0-FEW) Urine Test Negative (NEG) White Blood Count 10.3 x10^3/uL (4.0-11.0) Red Blood Count 4.87 x10^6/uL (3.50-5.40) Hemoglobin 13.4 g/dL (12.0-15.5) Hematocrit 40.1 % (36.0-47.0) Mean Corpuscular Volume 82 fL (79-100) Mean Corpuscular Hemoglobin 28 pg (25-35) Mean Corpuscular Hemoglobin Concent 33 g/dL (31-37) Red Cell Distribution Width 14.6 % (11.5-14.5) H Platelet Count 231 x10^3/uL (140-400) Neutrophils (%) (Auto) 62 % (31-73) Lymphocytes (%) (Auto) 30 % (24-48) Monocytes (%) (Auto) 5 % (0-9) Eosinophils (%) (Auto) 1 % (0-3) Basophils (%) (Auto) 1 % (0-3) Neutrophils # (Auto) 6.4 x10^3uL (1.8-7.7) Lymphocytes # (Auto) 3.1 x10^3/uL (1.0-4.8) Monocytes # (Auto) 0.5 x10^3/uL (0.0-1.1) Eosinophils # (Auto) 0.1 x10^3/uL (0.0-0.7) Basophils # (Auto) 0.1 x10^3/uL (0.0-0.2) Sodium Level 140 mmol/L (136-145) Potassium Level 4.0 mmol/L (3.5-5.1) Chloride Level 104 mmol/L (98-107) Carbon Dioxide Level 24 mmol/L (21-32) Anion Gap 12 (6-14) Blood Urea Nitrogen 10 mg/dL (7-20) Creatinine 0.7 mg/dL (0.6-1.0) Estimated GFR (Cockcroft-Gault) 93.6 BUN/Creatinine Ratio 14 (6-20) Glucose Level 89 mg/dL (70-99) Calcium Level 9.6 mg/dL (8.5-10.1) Total Bilirubin 0.4 mg/dL (0.2-1.0) Aspartate Amino Transferase (AST) 18 U/L (15-37) Alanine Aminotransferase (ALT) 35 U/L (14-59) Alkaline Phosphatase 100 U/L (46-116) Total Protein 8.0 g/dL (6.4-8.2) Albumin 4.1 g/dL (3.4-5.0) Albumin/Globulin Ratio 1.1 (1.0-1.7) EKG EKG [] Radiology/Procedures Radiology/Procedures INDICATION: Reason: RT FLANK TO SUPRAPUBIC PAIN COMPARISON: August 2016 TECHNIQUE: Axial CT images obtained through the abdomen and pelvis with contrast. One or more of the following individualized dose reduction techniques were utilized for this examination: 1. Automated exposure control; 2. Adjustment of the mA and/or kV according to patient size; 3. Use of iterative reconstruction technique. FINDINGS: Trace pleural effusions. Mild calcific atherosclerosis without abdominal aortic aneurysm. Metallic clips seen in the pelvis. Liver is mildly low density. Nonspecific but can be seen with fatty infiltration. Postcholecystectomy changes. No peripancreatic fluid collection. Spleen is enlarged. No hydronephrosis. Uterus is visualized. The appendix does not appear inflamed. No dilated loops of bowel to suggest obstruction. There is some degenerative changes the spine with osteophyte formation. Bilateral pars defects L5. Multilevel central canal and neural foraminal stenosis within the spine including at L4-5 where there is a disc osteophyte complex. IMPRESSION: * No evidence of appendicitis or bowel obstruction. * No hydronephrosis. Electronically signed by: Herman Palacio MD (03/23/2021 2:34 PM) [id number] Heart Score C/O Chest Pain: No Risk Factors: Risk Factors: DM, Current or recent (<one month) smoker, HTN, HLP, family history of CAD, obesity. Risk Scores: Risk Factors: DM, Current or recent (<one month) smoker, HTN, HLP, family hist ory of CAD, obesity. Course & Med Decision Making Course & Med Decision Making Discussed with the patient all findings and diagnostic testing. I discussed most likely diagnosis of unspecified abdominal pain. Patient is anxious, I feel lot of her presenting symptoms are due to anxiety and fear of having MRI with "metal clips" that are likely benign/surgical present in pelvis. Patient deferring pelvic exam. I discussed that her condition based on work-up so far was nonconcerning for any emergent or surgical issues. I disclose little indication for further diagnostic work-up in ER setting and/or hospitalization and so, I stressed need for close outpatient follow-up to review today's ER visit. Strict return precautions were also discussed at length with good understanding by patient. Patient voiced understanding and agreement with the plan. Patient knows to come back for repeat evaluation if concerning signs or symptoms present prior to outpatient follow-up. Hemodynamically stable, ambulatory and well-appearing at time of disposition. Dragon Disclaimer Dragon Disclaimer This electronic medical record was generated, in whole or in part, using a voice recognition dictation system. Departure Departure: Impression: Primary Impression: Abdominal pain Disposition: HOME / SELF CARE / HOMELESS Condition: STABLE Referrals: BLANCA KENYON (PCP) Patient Instructions: Abdominal Pain (Nonspecific) Additional Instructions: You have been evaluated in the Emergency Department today for abdominal pain. Your evaluation was not suggestive of any emergent condition requiring medical intervention at this time. However, some abdominal problems make take more time to appear. Therefore, it is important for you to watch for any new symptoms or worsening of your current condition. As disclosed, you need to contact your primary care physician and I recommend contacting your [facility] for close outpatient follow-up to review today's ER visit Return to the Emergency Department if you experience worsening pain, persistent fevers greater than 100.4, recurrent vomiting, blood in vomit, blood in stool, dark tarry stool, chest pain, difficulty breathing, or any other concerning symptoms. RADHA POZO DO Mar 23, 2021 14:42
[2021-03-23 15:20] VITALS: BP 110/70
== END 2021-03-23 15:27 | disposition home or self-care (01) ==
LOC: ER 11:52
DX: R10.84 Generalized abdominal pain (principal); Z90.49 Acquired absence of other specified parts of digestive tract; Z90.710 Acquired absence of both cervix and uterus; Z88.1 Allergy status to other antibiotic agents; Z91.013 Allergy to seafood
CPT/HCPCS: 36415; 74177; 80053; 81001; 81025; 85025; 87086; 96374; 99285; J3010; Q9967

== ENCOUNTER → 2021-03-29 | Outpatient (CLI) | payer BC ==
[2021-03-23 15:20] VITALS: BP 110/70
--- NOTE | 2021-03-29 12:17 | RAD ---
EXAM: ULTRASOUND PELVIS INDICATION: Reason: DYSPAREUNIA PELVIC PERINEAL PAIN COMPARISON: None CT of the abdomen and pelvis March 23, 2021. TECHNIQUE: Transvaginal and transabdominal pelvic sonography was performed FINDINGS: Bilateral nephrectomy noted. The uterus measures 8.4 x 3.9 x 2.5 cm. Endometrial thickness is 0.5 centimeters. There is a cluster of nabothian cysts noted. Largest measures approximately 8 mm. No other focal uterine lesions are identified. No free fluid is seen in the pelvis. IMPRESSION: 1. Multiple nabothian cysts 2. Bilateral nephrectomy 3. Otherwise unremarkable pelvic ultrasound. Electronically signed by: Cristi Huynh MD (03/29/2021 12:15 PM) [id number]
== END ==
LOC: US 08:26
PROVIDERS: ATTEND Obstetrics & Gynecology
DX: N94.10 Unspecified dyspareunia (principal); Z90.5 Acquired absence of kidney
CPT/HCPCS: 76830; 76856

== ENCOUNTER → 2021-07-07 | Outpatient (CLI) | payer BC | LOC: LAB 07:57 | DX: E61.1 Iron deficiency (principal) | CPT/HCPCS: 83540 ==

== ENCOUNTER → 2021-09-26 | Outpatient (CLI) | payer BC ==
[~2021-09-26] MED LIST changes: -CYCL-331 PO; +CYCL10TA19 PO
--- NOTE | 2021-09-28 07:44 | RAD ---
BILATERAL DIGITAL SCREENING 2-D AND 3-D MAMMOGRAM INDICATION: Routine screening. COMPARISON: August 19, 2020 Interpretation was made using CAD. FINDINGS: Breast Density: The breasts are almost entirely fatty. RIGHT BREAST: There is a stable asymmetry in the right subareolar region. No suspicious masses, calci fications or areas of architectural distortion are seen. LEFT BREAST: No suspicious masses, calcifications or areas of architectural distortion are seen. IMPRESSION: 1. No imaging evidence of malignancy. ASSESSMENT: BI-RADS 2. BENIGN FINDINGS RECOMMENDATION: Routine annual screening mammogram. The facility will notify the patient of the results via mail. Patient information will be entered int o the mammography reminder system with a target recall date for the next mammogram. A reminder letter will be generated by the facility. Electronically signed by: Sarah Rice MD (09/28/2021 7:41 AM) [id number]
== END ==
LOC: MAMMO 15:19
DX: Z12.31 Encounter for screening mammogram for malignant neoplasm of breast (principal)
CPT/HCPCS: 77063; 77067

== ENCOUNTER → 2021-10-04 | Outpatient (CLI) | payer BC ==
[2021-10-04 08:40] LABS: BASO # 0.1 x10^3/uL (0.0-0.2); BASO % 1 % (0-3); CALCIUM 9.5 mg/dL (8.5-10.1); CREATININE 0.8 mg/dL (0.6-1.0); EOS # 0.2 x10^3/uL (0.0-0.7); EOS % 2 % (0-3); GFR 79.9; HEMATOCRIT 40.3 % (36.0-47.0); HEMOGLOBIN 13.4 g/dL (12.0-15.5); LYMPH # 3.1 x10^3/uL (1.0-4.8); LYMPH % 35 % (24-48); MEAN CORPUSCULAR HEMOGLOBIN 28 pg (25-35); MEAN CORPUSCULAR HGB CONC 33 g/dL (31-37); MEAN CORPUSCULAR VOLUME 83 fL (79-100); MONO # 0.6 x10^3/uL (0.0-1.1); MONO % 7 % (0-9); NEUT % 56 % (31-73); PLATELET COUNT 242 x10^3/uL (140-400); RED BLOOD COUNT 4.85 x10^6/uL (3.50-5.40); RED CELL DISTRIBUTION WIDTH 13.9 % (11.5-14.5)
[2021-10-04 09:31] LABS: BACTERIA,URINE MANY /HPF (0-FEW); BILIRUBIN,URINE NEG (NEG); CLARITY,URINE HAZY; COLOR,URINE YELLOW; GLUCOSE,URINE NEG (NEG); NITRITE,URINE NEG (NEG); SQUAMOUS EPITHELIAL CELL,UR MANY /LPF; UROBILINOGEN,URINE 0.2 mg/dL (0.2 mg/dL)
== END ==
LOC: LAB 07:56
PROVIDERS: ATTEND Surgery
DX: N39.0 Urinary tract infection, site not specified (principal)
CPT/HCPCS: 36415; 80048; 81001; 85025; 87086

== ENCOUNTER → 2021-12-20 | Outpatient (CLI) | payer BC ==
[2021-12-20 08:49] LABS: BASO # 0.1 x10^3/uL (0.0-0.2); BASO % 1 % (0-3); EOS # 0.2 x10^3/uL (0.0-0.7); EOS % 2 % (0-3); HEMATOCRIT 40.8 % (36.0-47.0); HEMOGLOBIN 13.5 g/dL (12.0-15.5); LYMPH # 2.5 x10^3/uL (1.0-4.8); LYMPH % 31 % (24-48); MEAN CORPUSCULAR HEMOGLOBIN 28 pg (25-35); MEAN CORPUSCULAR HGB CONC 33 g/dL (31-37); MEAN CORPUSCULAR VOLUME 84 fL (79-100); MONO # 0.4 x10^3/uL (0.0-1.1); MONO % 5 % (0-9); NEUT # 4.7 x10^3uL (1.8-7.7); NEUT % 60 % (31-73); PLATELET COUNT 226 x10^3/uL (140-400); RED BLOOD COUNT 4.89 x10^6/uL (3.50-5.40); RED CELL DISTRIBUTION WIDTH 14.1 % (11.5-14.5); WHITE BLOOD COUNT 7.9 x10^3/uL (4.0-11.0)
[2021-12-20 09:07] LABS: ALBUMIN 3.9 g/dL (3.4-5.0); ALBUMIN/GLOBULIN RATIO 1.1 (1.0-1.7); CALCIUM 9.4 mg/dL (8.5-10.1); CREATININE 0.6 mg/dL (0.6-1.0); GFR 111.3; POTASSIUM 4.4 mmol/L (3.5-5.1); TOTAL BILIRUBIN 0.3 mg/dL (0.2-1.0); TOTAL PROTEIN 7.6 g/dL (6.4-8.2)
== END ==
LOC: LAB 07:58
PROVIDERS: ATTEND Surgery
DX: E61.1 Iron deficiency (principal); N39.0 Urinary tract infection, site not specified; R10.84 Generalized abdominal pain; E86.0 Dehydration; E53.9 Vitamin B deficiency, unspecified
CPT/HCPCS: 36415; 80053; 83540; 85025